=== PATIENT | female | born 1990 | race Caucasian/White ===

== ENCOUNTER 2018-04-18 12:05 | Emergency (ER) | payer OTHER, SELFPAY ==
[2018-04-18 12:21] VITALS: BP 117/86; PULSE 86; RESP 18; TEMP 37.1; O2SAT 95
--- NOTE | 2018-04-18 12:32 | ED.FEMALEGU ---
HPI - Female Genitourinary <HAYLIE Chavez - Last Filed: 04/18/18 15:36> General Chief complaint: Urogenital-Female Stated complaint: THINKS KIDNEY INFECTION Time Seen by Provider: 04/18/18 12:19 Source: patient Mode of arrival: ambulatory Limitations: no limitations History of Present Illness HPI Narrative: Patient is a 28-year-old female who presents with urinary urgency frequency and dysuria since Thursday. She states that she is developing flank pain. She denies any fevers but complains of chills. She denies any vomiting or diarrhea. She does state she has a history of endometriosis, took Plan B on Thursday after intercourse on Thursday. She denies any vaginal symptoms. She c/o suprapubic pain. Related Data Previous Rx's Medication Instructions Recorded naproxen 500 mg PO BID PRN #20 tab 04/18/18 nitrofurantoin monohyd/m-cryst 100 mg PO Q12H #14 cap 04/18/18 [Macrobid] phenazopyridine [AZO Standard 195 mg PO TID PRN #12 tab 04/18/18 Maximum Strength] Allergies Allergy/AdvReac Type Severity Reaction Status Date / Time No Known Drug Allergies Allergy Verified 04/18/18 12:28 Review of Systems <HAYLIE Chavez - Last Filed: 04/18/18 15:36> Review of Systems GENERAL: Denies chills, fatigue, malaise, fever, sweats. HEENT: Denies sinus pain, ear pain, sore throat, difficulty swallowing, dizziness. RESPIRATORY: Denies dyspnea, cough, wheezing, hemoptysis, sputum. CARDIOVASCULAR: Denies chest pain, palpitations, orthopnea, edema, GASTROINTESTINAL: See HPI : See HPI MUSCULOSKELETAL: denies weakness, joint pain, or bony pain SKIN: Denies rash, skin lesions, or other NEUROLOGIC: Denies weakness, headache, numbness, change in speech, confusion, seizures, incoordination. PSYCHIATRIC: No concerning psychosocial issues. 12 point review of systems is negative except for those stated above Exam <HAYLIE Chavez - Last Filed: 04/18/18 15:36> Narrative Exam Narrative: GENERAL: This is a well-nourished, well-developed patient, lying on side HEAD: Atraumatic. Normocephalic. No temporal or scalp tenderness. EYES: Pupils equal round and reactive. Extraocular motions intact. No scleral icterus. No injection or drainage. ENT: Nose without bleeding, purulent drainage or septal hematoma. Throat without erythema, tonsillar hypertrophy or exudate. Uvula midline. Airway patent. NECK: Trachea midline. No JVD or lymphadenopathy. Supple, nontender, no meningeal signs. CARDIOVASCULAR: Regular rate and rhythm without murmurs, gallops, or rubs. RESPIRATORY: Clear to auscultation. Breath sounds equal bilaterally. No wheezes, rales, or rhonchi. GASTROINTESTINAL: Abdomen soft, with diffuse tenderness to suprapubic palpation., nondistended. No hepato-splenomegaly, or palpable masses. No guarding. No pulsatile mass. Active bowel sounds all 4 quadrants. EXTREMITIES: No clubbing, cyanosis, or edema. No joint tenderness, effusion, or edema noted. BACK: Nontender without deformity or crepitance. No CVA tenderness bilaterally. NEURO: AOx3. SKIN: No rash or erythema. Initial Vital Signs Initial Vital Signs: Vital Signs Temperature 98.7 F 04/18/18 12:21 Pulse Rate 86 04/18/18 12:21 Respiratory Rate 18 04/18/18 12:21 Blood Pressure 117/86 04/18/18 12:21 Pulse Oximetry 95 04/18/18 12:21 <Keenan Méndez DO - Last Filed: 04/18/18 17:07> Initial Vital Signs Initial Vital Signs: Vital Signs Temperature 98.7 F 04/18/18 12:21 Pulse Rate 86 04/18/18 12:21 Respiratory Rate 18 04/18/18 12:21 Blood Pressure 117/86 04/18/18 12:21 Pulse Oximetry 95 04/18/18 12:21 Course <HARI Chavez-BC - Last Filed: 04/18/18 15:36> Orders Ordered: Discontinued Medications Ketorolac Tromethamine (Toradol) 60 mg IM NOW ONE Stop: 04/18/18 12:37 Last Admin: 04/18/18 12:43 Dose: 60 mg Ondansetron HCl (Zofran Odt) 4 mg PO NOW ONE Stop: 04/18/18 12:37 Last Admin: 04/18/18 12:44 Dose: 4 mg Reevaluation(s) Reevaluation #1: Checked on patient. States that she got the best 30 min of sleep and recent memory. Discussed her urine results. Discussed use of antibiotics as well as Pyridium and naproxen. Patient declined further workup for pelvic pain today. Discussed at length monitoring and being evaluated becomes worse or following up with primary care in the next few days. Discussed urine culture. Time: 13:40 Vital Signs - 8 hr 04/18/18 12:21 04/18/18 14:07 Temperature 98.7 F Pulse Rate 86 66 Respiratory Rate 18 14 Blood Pressure 117/86 Blood Pressure [Left Arm] 117/67 Pulse Oximetry 95 97 <Keenan Méndez DO - Last Filed: 04/18/18 17:07> Orders Ordered: Discontinued Medications Ketorolac Tromethamine (Toradol) 60 mg IM NOW ONE Stop: 04/18/18 12:37 Last Admin: 04/18/18 12:43 Dose: 60 mg Ondansetron HCl (Zofran Odt) 4 mg PO NOW ONE Stop: 04/18/18 12:37 Last Admin: 04/18/18 12:44 Dose: 4 mg Vital Signs - 8 hr 04/18/18 12:21 04/18/18 14:07 Temperature 98.7 F Pulse Rate 86 66 Respiratory Rate 18 14 Blood Pressure 117/86 Blood Pressure [Left Arm] 117/67 Pulse Oximetry 95 97 MDM - Female Genitourinary <HARI Chavez-BC - Last Filed: 04/18/18 15:36> Lab Data Attestation: I reviewed the patient's lab results. Lab Results 04/18/18 Range/Units Unknown Urine Color Yellow Urine Appearance Cloudy Urine pH 5.5 (4.5-8.0) Ur Specific [place] 1.015 (1.000-1.035) Urine Protein 2+ H (Negative) Urine Glucose (UA) Negative (Normal) g/dL Urine Ketones 1+ H (NEGATIVE) Urine Occult Blood 3+ H (Negative) Urine Nitrate Positive H (Negative) Urine Bilirubin Negative (NEGATIVE) Urine Urobilinogen 0.2 (0.2) E.U./dL Ur Leukocyte Esterase 2+ H (NEGATIVE) Urine RBC 5-10/hpf H (0-5/HPF) Urine WBC >100/hpf H (0-5/HPF) Ur Squamous Epith Cells None seen Urine Bacteria Moderate (10-30) H (None) Ur Culture Indicated? Specimen cultured Micro UA Comment Not Reportable Point of Care Testing Test Results Negative Urine Dip Bedside Urine Glucose Negative Bedside Urine Bilirubin - Negative Bedside Urine Ketone + 15 Urine Specific [place] 1.020 Bedside Urine Occult Blood +++ Bedside Urine pH 6.0 Bedside Urine Protein ++ 100 Bedside Urine Urobilinogen - Negative Bedside Urine Nitrite - Negative Bedside Urine Leukocytes +++ 500 Esterase MDM Narrative Medical decision making narrative: Patient presents with urinary urgency frequency and dysuria. Her UA is negative for but shows nitrates and bacteria. Will treat for UTI at this point time. I discussed at length up with primary care if worsening or no improvement including fever and inability keep down fluids. Patient had no questions or concerns upon discharge. <Keenan Méndez DO - Last Filed: 04/18/18 17:07> Lab Data Lab Results 04/18/18 Range/Units Unknown Urine Color Yellow Urine Appearance Cloudy Urine pH 5.5 (4.5-8.0) Ur Specific [place] 1.015 (1.000-1.035) Urine Protein 2+ H (Negative) Urine Glucose (UA) Negative (Normal) g/dL Urine Ketones 1+ H (NEGATIVE) Urine Occult Blood 3+ H (Negative) Urine Nitrate Positive H (Negative) Urine Bilirubin Negative (NEGATIVE) Urine Urobilinogen 0.2 (0.2) E.U./dL Ur Leukocyte Esterase 2+ H (NEGATIVE) Urine RBC 5-10/hpf H (0-5/HPF) Urine WBC >100/hpf H (0-5/HPF) Ur Squamous Epith Cells None seen Urine Bacteria Moderate (10-30) H (None) Ur Culture Indicated? Specimen cultured Micro UA Comment Not Reportable Point of Care Testing Test Results Negative Urine Dip Bedside Urine Glucose Negative Bedside Urine Bilirubin - Negative Bedside Urine Ketone + 15 Urine Specific [place] 1.020 Bedside Urine Occult Blood +++ Bedside Urine pH 6.0 Bedside Urine Protein ++ 100 Bedside Urine Urobilinogen - Negative Bedside Urine Nitrite - Negative Bedside Urine Leukocytes +++ 500 Esterase Discharge Plan Departure Patient Disposition: Home Clinical Impression: Urinary tract infection Discharge Date/Time: 04/18/18 14:11 Interventions: ED Discharge Assessment Last Done: 04/18/18 14:11 Instructions: DI for Urinary Tract Infection (UTI) Activity Restrictions/Additional Instructions: I am starting you on 3 medications. Please start the antibiotic today. I am giving you Pyridium that you can take 3 times a day as needed for urinary pain. Please take this with meals. You can start naproxen tonight for pain. Please do not combine this with any other NSAIDs. Please follow-up with her primary care provider if needed. Please be evaluated if you have any fever inability to keep down fluids or feel worse. The antibiotic should work in a few doses. We are sending out a urine culture to make sure that the antibiotic will work for you. Please be re-evaluated if you continue to have pelvic pain. Prescriptions: New nitrofurantoin monohyd/m-cryst [Macrobid] 100 mg capsule 100 mg PO Q12H Qty: 14 RF: 0 naproxen 500 mg tablet 500 mg PO BID PRN (Reason: pain) Qty: 20 RF: 0 phenazopyridine [AZO Standard Maximum Strength] 97.5 mg tablet 195 mg PO TID PRN (Reason: pain ) Qty: 12 RF: 0 Referrals: [facility] [Outside] Stand Alone Forms: Work/School Restrictions <Keenan Méndez DO - Last Filed: 04/18/18 17:07> [facility] Attending Kimberlyature Attestation: I was immediately available in the department for consultation. Documentation has been reviewed. I agree with assessment and plan.
[2018-04-18] MEDS: KETOROLAC 60 MG/2 ML VIAL IM (12:43)
[2018-04-18] MEDS: ONDANSETRON 4 MG ODT PO (12:44)
[2018-04-18 13:32] LABS: Appearance Urine UA CLOUDY; Bilirubin Urine UA NEGATIVE (NEGATIVE); Color Urine UA YELLOW; Glucose Urine UA NEGATIVE (Normal); Ketones Urine UA 1+ (NEGATIVE); Leukocyte Esterase Urine UA 2+ (NEGATIVE); Nitrite Urine UA POSITIVE (Negative); Occult Blood Urine UA 3+ (Negative); Protein Urine UA 2+ (Negative); Specific Gravity Urine UA 1.015 (1.000-1.035); Urobilinogen Urine UA 0.2 E.U./dL (0.2); pH Urine UA 5.5 (4.5-8.0)
[2018-04-18 13:33] LABS: RBC Urine 5-10/HPF (0-5/HPF)
[2018-04-18 13:34] LABS: Bacteria Urine Moderate (10-30); Culture Indicated Urine Specimen Cultured; Squamous Epithelial Cell Urine None Seen; WBC Urine >100/HPF (0-5/HPF)
[2018-04-18 14:07] VITALS: BP 117/67; PULSE 66; RESP 14; O2SAT 97
== END 2018-04-18 14:11 | disposition home or self-care (01) ==
PROVIDERS: Emergency Provider Nurse Practitioner Family
DX: N39.0 Urinary tract infection, site not specified (principal)
CPT/HCPCS: 81001; 81003; 81025; 87077; 87086; 87186; 96372; 99282; 99283; J1885

== ENCOUNTER 2021-11-12 14:28 | Emergency (ER) | payer OTHER, SELFPAY ==
[2021-11-12 14:54] VITALS: BP 138/95; PULSE 71; RESP 17; TEMP 36.7; O2SAT 100; BMI 26.6
[2021-11-12 15:37] LABS: Appearance Urine UA CLEAR; Bilirubin Urine UA NEGATIVE (NEGATIVE); Color Urine UA YELLOW; Glucose Urine UA NEGATIVE (Negative); Ketones Urine UA NEGATIVE (NEGATIVE); Leukocyte Esterase Urine UA TRACE (NEGATIVE); Nitrite Urine UA NEGATIVE (Negative); Occult Blood Urine UA 1+ (Negative); Protein Urine UA NEGATIVE (Negative); Specific Gravity Urine UA 1.015 (1.000-1.035); Urobilinogen Urine UA 0.2 E.U./dL (0.2)
[2021-11-12 15:46] LABS: Bacteria Urine None Seen; RBC Urine 0-1/HPF (0-5/HPF); Squamous Epithelial Cell Urine 0-1 /HPF (0-5/HPF); WBC Urine 0-1/HPF (0-5/HPF)
[2021-11-12 15:48] LABS: Culture Indicated Urine Specimen Cultured
[2021-11-12 16:22] LABS: Add Manual Diff / Slide Review NO; Basophils Absolute Auto 0 /uL (0-100); Basophils Percent Auto 0.7 % (0-2); Eosinophils Absolute Auto 200 /uL (0-450); Eosinophils Percent Auto 2.8 % (2-4); Hematocrit 36.7 % (36-46); Hemoglobin 12.3 g/dL (12.0-16.0); Lymphocytes Absolute Auto 3100 /uL (1100-4500); Lymphocytes Percent Auto 43.6 % (25-40); Mean Corpuscular HGB Conc 33.4 % (30-36); Mean Corpuscular Hemoglobin 29.2 PG (26-34); Mean Corpuscular Volume 87.3 fL (80-100); Monocytes Absolute Auto 500 /uL (0-900); Monocytes Percent Auto 6.8 % (3-14); Neutrophils Absolute Auto 3300 /uL (1500-7000); Neutrophils Percent Auto 46.1 % (50-75); Platelet Count 284 X10^3/uL (150-400); Red Cell Distribution Width 13.3 % (11.6-14.8); White Blood Cell Count 7.1 X10^3/uL (4.5-11.0)
[2021-11-12 16:56] LABS: Alanine Aminotransferase 21 IU/L (<35); Albumin 4.4 g/dL (3.5-5.0); Albumin Globulin Ratio 1.5 (1.0-2.8); Alkaline Phosphatase 59 U/L (38-126); Aspartate Aminotransferase 36 IU/L (14-36); BUN Creatinine Ratio 16.7 (6-22); Bilirubin Total 0.3 mg/dL (0.2-1.3); Blood Urea Nitrogen 9 mg/dL (7-17); Calcium 8.9 mg/dL (8.4-10.2); Carbon Dioxide 23 mmol/L (22-32); Chloride 106 mmol/L (98-107); Estimated Glomerular Filt Rate > 60 mL/min (>60); Globulin 2.9 g/dL (1.7-4.1); Glucose 81 mg/dL (70-100); HEMOLYSIS 36 (0-50); Potassium 3.8 mmol/L (3.4-5.1); Sodium 137 mmol/L (137-145); Total Protein 7.3 g/dL (6.3-8.2)
[2021-11-12 17:12] LABS: HCG Quantitative /Beta subunit 274.1 mIU/mL
--- NOTE | 2021-11-12 18:51 | DI.US.S_ITS ---
PROCEDURE: US PELVIC COMPLETE INDICATIONS: POSITIVE ; SPOTTING, PAIN TECHNIQUE: Real-time scanning was performed of the pelvic organs, with image documentation. Additional endovaginal scanning was necessary due to incomplete visualization of the adnexal and endometrial structures by transabdominal scanning. COMPARISON: None. FINDINGS: Uterus: Uterus is anteverted and measures 9.4 x 5.2 x 6.9 cm. The myometrium is homogeneous. The endometrium measures 1.5 cm in combined thickness without internal vascularity on color Doppler interrogation. No discrete additional sac identified to suggest an intrauterine . Ovaries: The right ovary measures 2.6 x 1.9 x 2.0 cm. The left ovary measures 2.9 x 2.0 x 2.1 cm. There is an hypoechoic structure within the left ovary measuring approximately 2.0 x 1.3 x 1.5 cm. There is peripheral vascularity on color Doppler interrogation. Other: No pathologic free abdominal or pelvic fluid. IMPRESSION: 1. No intrauterine identified. 2. Oval hypoechoic structure within the left ovary with peripheral vascularity likely represents a corpus luteal cyst. The differential includes an ectopic but this is considered less likely given the relatively low beta HCG level and morphologic appearance. Recommend follow-up serial beta hCGs and if indicated a follow-up repeat ultrasound may be performed for further evaluation. Findings discussed with Dr. Castro on 11/12/2021 at 8:55 p.m.. We strive to produce accurate, complete, and clear reports of imaging services. To assist us in improving patient care, this report was composed using standard report templates and voice recognition software. Therefore, it may contain abnormal punctuation, insertions and/or omissions. Occasional wrong-word or sound-alike substitutions may occur. Though we review the report and make efforts to correct it, we do recommend that the report be read carefully in proper context to recognize any text inaccuracies. Dictated by: Thee Hernandez M.D. on 11/12/2021 at 20:52 Approved by: Thee Hernandez M.D. on 11/12/2021 at 21:01
--- NOTE | 2021-11-12 19:25 | ED.PREGNANCY ---
HPI - <MARINA Zapata - Last Filed: 11/12/21 21:33> General Chief complaint: Vaginal Bleeding Stated complaint: [place] and is spotting Time Seen by Provider: 11/12/21 19:10 Source: patient Mode of arrival: Ambulatory History of Present Illness HPI Narrative: This is a pleasant 31-year-old female who presents to the emergency department with vaginal spotting, a very small amount which started 3 days ago as brown vaginal discharge. Patient's last menstrual period was 09/07/2021, she has also had left-sided cramping, states that she has felt fatigued, denies fever, nausea, vomiting, diarrhea. Patient states that her spotting started after she was at the gym, thought that she worked out too hard, and rested, but it continued the next 2 days and cramping has started. Patient states that she has not had her 1st OB appointment yet, states that she takes citalopram 20 mg daily, denies any other medications other than vitamins. She endorses some back pain which was worse about 3 days ago, now has improved, she endorses urinary frequency but denies any dysuria. Patient's past states that she was up to void approximately every 2 hours the last 2 nights. Related Data Previous Rx's Medication Instructions Recorded naproxen 500 mg tablet 500 mg PO BID PRN #20 tab 04/18/18 nitrofurantoin 100 mg PO Q12H #14 cap 04/18/18 monohydrate/macrocrystals 100 mg capsule (Macrobid) phenazopyridine 97.5 mg tablet 195 mg PO TID PRN #12 tab 04/18/18 (AZO Standard Maximum Strength) Allergies Allergy/AdvReac Type Severity Reaction Status Date / Time No Known Drug Allergies Allergy Verified 04/18/18 12:28 Review of Systems <MARINA Zapata - Last Filed: 11/12/21 21:33> Review of Systems Narrative: General: denies fever, chills, malaise, sweats, fatigue Head/Neck: denies headache, neck pain, dizziness Eyes: denies visual changes, eye pain Cardio: denies chest pain, palpitations, edema Respiratory: denies dyspnea, cough GI: denies abdominal pain, nausea, vomiting, or diarrhea : denies dysuria, hematuria, urinary retention, frequency or incontinence [employer]: Vaginal spotting which is pink and light in volume MSK: denies joint pain, muscle weakness Skin: denies rash, itching, skin lesions or other Neuro: denies numbness, tingling Exam <MARINA Zapata - Last Filed: 11/12/21 21:33> Narrative Exam Narrative: Independently reviewed vitals signs and nursing notes. General: cooperative, comfortable, in no acute distress, well developed and well groomed Head: atraumatic, symmetrical facial expressions Neck: supple, atraumatic, without lymphadenopathy. Eyes: pupils equal round and reactive, EOMI, conjunctiva normal Nose: nares patent, no rhinorrhea Mouth/Throat: uvula midline, moist mucus membranes Cardiovascular: regular rate and rhythm, no peripheral edema, warm extremities Respiratory: normal effort, able to speak in complete sentences, no audible wheezing, stridor, or rales. No retractions or tachypnea. GI: abdomen soft, nontender to palpation, nondistended, no masses, no exquisite tenderness with exam, without guarding or rebound. No CVA tenderness MSK: moves all extremities, ambulatory w/steady gait, neurovascularly intact, no weakness Skin: brisk capillary refill, no rash, no erythema Neuro: normal speech and cognition, A&O x3, normal tone Psych: mental status is grossly normal, congruent mood, normal affect, pleasant tearful, anxious about diagnosis, and cooperative Initial Vital Signs Initial Vital Signs: Vital Signs Temperature 98.1 F 11/12/21 14:54 Pulse Rate 71 11/12/21 14:54 Respiratory Rate 17 11/12/21 14:54 Blood Pressure 138/95 H 11/12/21 14:54 Pulse Oximetry 100 11/12/21 14:54 <Carmen Reeder DO - Last Filed: 11/13/21 07:24> Initial Vital Signs Initial Vital Signs: Vital Signs Temperature 98.1 F 11/12/21 14:54 Pulse Rate 71 11/12/21 14:54 Respiratory Rate 17 11/12/21 14:54 Blood Pressure 138/95 H 11/12/21 14:54 Pulse Oximetry 100 11/12/21 14:54 Course <MARINA Zapata - Last Filed: 11/12/21 21:33> Orders Ordered: ED Orders 11/12/21 15:00 Urinalysis and Microscopic Stat Urine Culture Stat 11/12/21 16:15 ABO RH Type Stat Complete Blood Count AUTO DIFF Stat Comprehensive Metabolic Panel Stat HCG Quantitative /Beta subunit Stat 11/12/21 18:51 US pelvic complete Stat 11/12/21 20:02 Consult to Obstetrics Stat Vital Signs Vital signs: Vital Signs - 8 hr 11/12/21 14:54 11/12/21 20:00 Temperature 98.1 F Pulse Rate 71 69 Respiratory Rate 17 18 Blood Pressure 138/95 H 117/75 Pulse Oximetry 100 98 <Carmen Reeder DO - Last Filed: 11/13/21 07:24> Orders Ordered: ED Orders 11/12/21 15:00 Urinalysis and Microscopic Stat Urine Culture Stat 11/12/21 16:15 ABO RH Type Stat Complete Blood Count AUTO DIFF Stat Comprehensive Metabolic Panel Stat HCG Quantitative /Beta subunit Stat 11/12/21 18:51 US pelvic complete Stat 11/12/21 20:02 Consult to Obstetrics Stat Vital Signs Vital signs: Vital Signs - 8 hr 11/12/21 14:54 11/12/21 20:00 Temperature 98.1 F Pulse Rate 71 69 Respiratory Rate 17 18 Blood Pressure 138/95 H 117/75 Pulse Oximetry 100 98 MDM - OB/Uterine Contractions <MARINA Zapata - Last Filed: 11/12/21 21:33> Lab Data Result diagrams: 11/12/21 16:15 11/12/21 16:15 Labs: Lab Results 11/12/21 11/12/21 11/12/21 Range/Units 15:00 16:15 16:15 WBC 7.1 (4.5-11.0) X10^3/uL RBC 4.20 (4.0-5.2) X10^6/uL Hgb 12.3 (12.0-16.0) g/dL Hct 36.7 (36-46) % MCV 87.3 (80-100) fL MCH 29.2 (26-34) PG MCHC 33.4 (30-36) % RDW 13.3 (11.6-14.8) % Plt Count 284 (150-400) X10^3/uL Neut % (Auto) 46.1 L (50-75) % Lymph % (Auto) 43.6 H (25-40) % [place] % (Auto) 6.8 (3-14) % Eos % (Auto) 2.8 (2-4) % Baso % (Auto) 0.7 (0-2) % Neut # (Auto) 3300 (7627-3035) /uL Lymph # (Auto) 3100 (7581-7097) /uL [place] # (Auto) 500 (0-900) /uL Eos # (Auto) 200 (0-450) /uL Baso # (Auto) 0 (0-100) /uL Sodium 137 (137-145) mmol/L Potassium 3.8 (3.4-5.1) mmol/L Chloride 106 (98-107) mmol/L Carbon Dioxide 23 (22-32) mmol/L BUN 9 (7-17) mg/dL Creatinine 0.54 (0.52-1.04) mg/dL Estimated GFR > 60 (>60) mL/min BUN/Creatinine Ratio 16.7 (6-22) Glucose 81 (70-100) mg/dL Calcium 8.9 (8.4-10.2) mg/dL Total Bilirubin 0.3 (0.2-1.3) mg/dL AST 36 (14-36) IU/L ALT 21 (<35) IU/L Alkaline Phosphatase 59 (38-126) U/L Total Protein 7.3 (6.3-8.2) g/dL Albumin 4.4 (3.5-5.0) g/dL Globulin 2.9 (1.7-4.1) g/dL Albumin/Globulin Ratio 1.5 (1.0-2.8) HCG, Quant 274.1 mIU/mL Urine Color Yellow Urine Appearance Clear Urine pH 7.0 (4.5-8.0) Ur Specific [place] 1.015 (1.000-1.035) Urine Protein Negative (Negative) Urine Glucose (UA) Negative (Negative) g/dL Urine Ketones Negative (NEGATIVE) Urine Occult Blood 1+ H (Negative) Urine Nitrate Negative (Negative) Urine Bilirubin Negative (NEGATIVE) Urine Urobilinogen 0.2 (0.2) E.U./dL Ur Leukocyte Esterase Trace H (NEGATIVE) Urine RBC 0-1/hpf (0-5/HPF) Urine WBC 0-1/hpf (0-5/HPF) Ur Squamous Epith Cells 0-1 /hpf (0-5/HPF) Urine Bacteria None seen (None) Ur Culture Indicated? Specimen cultured Blood Type 11/12/21 Range/Units 16:15 WBC (4.5-11.0) X10^3/uL RBC (4.0-5.2) X10^6/uL Hgb (12.0-16.0) g/dL Hct (36-46) % MCV (80-100) fL MCH (26-34) PG MCHC (30-36) % RDW (11.6-14.8) % Plt Count (150-400) X10^3/uL Neut % (Auto) (50-75) % Lymph % (Auto) (25-40) % [place] % (Auto) (3-14) % Eos % (Auto) (2-4) % Baso % (Auto) (0-2) % Neut # (Auto) (0084-9390) /uL Lymph # (Auto) (1924-6363) /uL [place] # (Auto) (0-900) /uL Eos # (Auto) (0-450) /uL Baso # (Auto) (0-100) /uL Sodium (137-145) mmol/L Potassium (3.4-5.1) mmol/L Chloride (98-107) mmol/L Carbon Dioxide (22-32) mmol/L BUN (7-17) mg/dL Creatinine (0.52-1.04) mg/dL Estimated GFR (>60) mL/min BUN/Creatinine Ratio (6-22) Glucose (70-100) mg/dL Calcium (8.4-10.2) mg/dL Total Bilirubin (0.2-1.3) mg/dL AST (14-36) IU/L ALT (<35) IU/L Alkaline Phosphatase (38-126) U/L Total Protein (6.3-8.2) g/dL Albumin (3.5-5.0) g/dL Globulin (1.7-4.1) g/dL Albumin/Globulin Ratio (1.0-2.8) HCG, Quant mIU/mL Urine Color Urine Appearance Urine pH (4.5-8.0) Ur Specific [place] (1.000-1.035) Urine Protein (Negative) Urine Glucose (UA) (Negative) g/dL Urine Ketones (NEGATIVE) Urine Occult Blood (Negative) Urine Nitrate (Negative) Urine Bilirubin (NEGATIVE) Urine Urobilinogen (0.2) E.U./dL Ur Leukocyte Esterase (NEGATIVE) Urine RBC (0-5/HPF) Urine WBC (0-5/HPF) Ur Squamous Epith Cells (0-5/HPF) Urine Bacteria (None) Ur Culture Indicated? Blood Type A Positive Imaging Data US - OB: Radiologist's Impression: PROCEDURE:? US PELVIC COMPLETE ? INDICATIONS:? POSITIVE ; SPOTTING, PAIN ? TECHNIQUE:? Real-time scanning was performed of the pelvic organs, with image documentation.? Additional endovaginal scanning was necessary due to incomplete visualization of the adnexal and endometrial structures by transabdominal scanning.? ? COMPARISON:? None. ? FINDINGS:? ?? Uterus:? Uterus is anteverted and measures 9.4 x 5.2 x 6.9 cm.? The myometrium is homogeneous. ? The endometrium measures 1.5 cm in combined thickness without internal vascularity on color Doppler interrogation.? No discrete additional sac identified to suggest an intrauterine .? ? Ovaries:? The right ovary measures 2.6 x 1.9 x 2.0 cm. The left ovary measures 2.9 x 2.0 x 2.1 cm.? There is an hypoechoic structure within the left ovary measuring approximately 2.0 x 1.3 x 1.5 cm.? There is peripheral vascularity on color Doppler interrogation. ? Other:? No pathologic free abdominal or pelvic fluid. ? ? IMPRESSION:? ? 1. No intrauterine identified. ? 2. Oval hypoechoic structure within the left ovary with peripheral vascularity likely represents a corpus luteal cyst.? The differential includes an ectopic but this is considered less likely given the relatively low beta HCG level and morphologic appearance.? Recommend follow-up serial beta hCGs and if indicated a follow-up repeat ultrasound may be performed for further evaluation. ? Findings discussed with Dr. Castro on 11/12/2021 at 8:55 p.m.. ? ? ? We strive to produce accurate, complete, and clear reports of imaging services. To assist us in improving patient care, this report was composed using standard report templates and voice recognition software. Therefore, it may contain abnormal punctuation, insertions and/or omissions. Occasional wrong-word or sound-alike substitutions may occur. Though we review the report and make efforts to correct it, we do recommend that the report be read carefully in proper context to recognize any text inaccuracies. ? ? Dictated by: Thee Hernandez M.D. on 11/12/2021 at 20:52 ? ? Approved by: Thee Hernandez M.D. on 11/12/2021 at 21:01 ? MDM Narrative Medical decision making narrative: This is a 31-year-old female who is a who presents to the emergency department with last menstrual period of 09/07/2021, history of irregular periods, with a wanted with a positive test on 11/05/2021. Patient states that she had brown vaginal spotting which started 3 nights ago after heavy workout. This has progressed to pink today, she has left-sided cramping, feels fatigued but denies any nausea, vomiting, pain out of proportion, weakness, lightheadedness, or heavy vaginal bleeding. Patient's hCG level is 247, patient states she had intercourse on 10/13/2021 without contraception, and she could have conceived this day also. Pelvic ultrasound shows no intrauterine identified. There is an over hypoechoic structure within the left ovary with peripheral vascularity which they call likely representing a corpus luteal cyst. This could also be an ectopic but less likely due to the low hCG level but due to her unsure date of conception, this could be from 10/13/2021. Consultation with Dr. Pinzon for OBGYN, he recommends following up with his group as an outpatient, he will arrange the clinic to call her for an appointment. She is recommended to rest, take a week off of work, meet with her therapist, and continue taking vitamins, and Tylenol as needed for your pain. Patient states that this is a wanted by her but her does not want to have another child, and he has been using contraception with most of their intercourse to avoid . Patient is tearful due to this situation, and she states that she really wishes to have another child. Patient was comforted, encouraged to follow-up with OBGYN and discuss these things with her therapist. Patient is appropriate and amenable to discharge home. Vital signs are stable on repeat examination is unremarkable. Patient has been informed of results. Patient has been given strict return to ER precautions for any new or worsening symptoms. Patient understands to follow up closely with outpatient providers as instructed. Patient understands plan and agrees to discharge home. All questions and concerns answered at this time. <Carmen Reeder DO - Last Filed: 11/13/21 07:24> Lab Data Labs: Lab Results 11/12/21 11/12/21 11/12/21 Range/Units 15:00 16:15 16:15 WBC 7.1 (4.5-11.0) X10^3/uL RBC 4.20 (4.0-5.2) X10^6/uL Hgb 12.3 (12.0-16.0) g/dL Hct 36.7 (36-46) % MCV 87.3 (80-100) fL MCH 29.2 (26-34) PG MCHC 33.4 (30-36) % RDW 13.3 (11.6-14.8) % Plt Count 284 (150-400) X10^3/uL Neut % (Auto) 46.1 L (50-75) % Lymph % (Auto) 43.6 H (25-40) % [place] % (Auto) 6.8 (3-14) % Eos % (Auto) 2.8 (2-4) % Baso % (Auto) 0.7 (0-2) % Neut # (Auto) 3300 (8849-6388) /uL Lymph # (Auto) 3100 (3271-8531) /uL [place] # (Auto) 500 (0-900) /uL Eos # (Auto) 200 (0-450) /uL Baso # (Auto) 0 (0-100) /uL Sodium 137 (137-145) mmol/L Potassium 3.8 (3.4-5.1) mmol/L Chloride 106 (98-107) mmol/L Carbon Dioxide 23 (22-32) mmol/L BUN 9 (7-17) mg/dL Creatinine 0.54 (0.52-1.04) mg/dL Estimated GFR > 60 (>60) mL/min BUN/Creatinine Ratio 16.7 (6-22) Glucose 81 (70-100) mg/dL Calcium 8.9 (8.4-10.2) mg/dL Total Bilirubin 0.3 (0.2-1.3) mg/dL AST 36 (14-36) IU/L ALT 21 (<35) IU/L Alkaline Phosphatase 59 (38-126) U/L Total Protein 7.3 (6.3-8.2) g/dL Albumin 4.4 (3.5-5.0) g/dL Globulin 2.9 (1.7-4.1) g/dL Albumin/Globulin Ratio 1.5 (1.0-2.8) HCG, Quant 274.1 mIU/mL Urine Color Yellow Urine Appearance Clear Urine pH 7.0 (4.5-8.0) Ur Specific [place] 1.015 (1.000-1.035) Urine Protein Negative (Negative) Urine Glucose (UA) Negative (Negative) g/dL Urine Ketones Negative (NEGATIVE) Urine Occult Blood 1+ H (Negative) Urine Nitrate Negative (Negative) Urine Bilirubin Negative (NEGATIVE) Urine Urobilinogen 0.2 (0.2) E.U./dL Ur Leukocyte Esterase Trace H (NEGATIVE) Urine RBC 0-1/hpf (0-5/HPF) Urine WBC 0-1/hpf (0-5/HPF) Ur Squamous Epith Cells 0-1 /hpf (0-5/HPF) Urine Bacteria None seen (None) Ur Culture Indicated? Specimen cultured Blood Type 11/12/21 Range/Units 16:15 WBC (4.5-11.0) X10^3/uL RBC (4.0-5.2) X10^6/uL Hgb (12.0-16.0) g/dL Hct (36-46) % MCV (80-100) fL MCH (26-34) PG MCHC (30-36) % RDW (11.6-14.8) % Plt Count (150-400) X10^3/uL Neut % (Auto) (50-75) % Lymph % (Auto) (25-40) % [place] % (Auto) (3-14) % Eos % (Auto) (2-4) % Baso % (Auto) (0-2) % Neut # (Auto) (7331-8025) /uL Lymph # (Auto) (8666-7263) /uL [place] # (Auto) (0-900) /uL Eos # (Auto) (0-450) /uL Baso # (Auto) (0-100) /uL Sodium (137-145) mmol/L Potassium (3.4-5.1) mmol/L Chloride (98-107) mmol/L Carbon Dioxide (22-32) mmol/L BUN (7-17) mg/dL Creatinine (0.52-1.04) mg/dL Estimated GFR (>60) mL/min BUN/Creatinine Ratio (6-22) Glucose (70-100) mg/dL Calcium (8.4-10.2) mg/dL Total Bilirubin (0.2-1.3) mg/dL AST (14-36) IU/L ALT (<35) IU/L Alkaline Phosphatase (38-126) U/L Total Protein (6.3-8.2) g/dL Albumin (3.5-5.0) g/dL Globulin (1.7-4.1) g/dL Albumin/Globulin Ratio (1.0-2.8) HCG, Quant mIU/mL Urine Color Urine Appearance Urine pH (4.5-8.0) Ur Specific [place] (1.000-1.035) Urine Protein (Negative) Urine Glucose (UA) (Negative) g/dL Urine Ketones (NEGATIVE) Urine Occult Blood (Negative) Urine Nitrate (Negative) Urine Bilirubin (NEGATIVE) Urine Urobilinogen (0.2) E.U./dL Ur Leukocyte Esterase (NEGATIVE) Urine RBC (0-5/HPF) Urine WBC (0-5/HPF) Ur Squamous Epith Cells (0-5/HPF) Urine Bacteria (None) Ur Culture Indicated? Blood Type A Positive Discharge Plan Departure Patient Disposition: Home Clinical Impression: Vaginal bleeding Instructions: DI for Vaginal Bleeding During , DI for Vaginal Bleeding Activity Restrictions/Additional Instructions: *You have been diagnosed with vaginal bleeding/spotting, last menstrual period of 09/07/2021, and an hCG level of 274.1 today. Your ultrasound does not show any intrauterine today. There is a oval structure within the left ovary that appears most like a corpus luteal cyst. This could also be an ectopic . Please follow-up with Dr. Pinzon's group tomorrow when they call you to schedule a follow-up appointment. They would like to see you within the next few days. Please take the rest of the week off work to rest, take Tylenol as needed for your pain and discomfort, stay hydrated with plenty of water, come to the emergency department for any sharp worsening of your pain, nausea and vomiting, heavy vaginal bleeding, or any other concerns. Thank you for trusting us with your care, I wish you the best. *What to do: *Please continue to take your regular medications as directed. [ ] New medication prescriptions sent to your pharmacy: [ ] [ ] New medication written as a paper prescription [x ] No new medications given *Please follow up with your primary care provider in 2-3 days, call for an appointment. Let them know you were seen in the Emergency Department and that we asked that you be seen for follow-up. We will electronically transmit a record of today's note if your PCP is in our system *If you do not have a primary care provider please contact [phone] to establish care with one of the [facility] primary care providers. *Return to Emergency Department if you should have any new, worsening or concerning symptoms, such as [fever greater than 101F, chills, worsening pain, persistent vomiting or other bothersome symptoms] Prescriptions: No Action nitrofurantoin monohyd/m-cryst [Macrobid] 100 mg capsule 100 mg PO Q12H Qty: 14 0RF Rx Instructions: must administer with a meal/food naproxen 500 mg tablet 500 mg PO BID PRN (Reason: pain) Qty: 20 0RF phenazopyridine [AZO Standard Maximum Strength] 97.5 mg tablet 195 mg PO TID PRN (Reason: pain ) Qty: 12 0RF Referrals: Denis Paez DO [Primary Care Provider] - Jorge Pinzon MD [Physician] - Stand Alone Forms: Work Release Note <Carmen Reeder DO - Last Filed: 11/13/21 07:24> [facility] Kimberlyature Attestation: I was immediately available in the department for consultation. Documentation has been reviewed. I agree with assessment and plan.
[2021-11-12 20:00] VITALS: BP 117/75; PULSE 69; RESP 18; O2SAT 98
[2021-11-12 20:30] VITALS: BP 115/67; PULSE 73; RESP 18; O2SAT 96
[2021-11-12 21:00] VITALS: BP 120/80; PULSE 83; RESP 18; O2SAT 98
== END 2021-11-12 21:29 | disposition home or self-care (01) ==
PROVIDERS: Emergency Medicine; Emergency Provider Nurse Practitioner Critical Care Medicine; PCP Student in an Organized Health Care Education/Training Program
DX: O20.9 Hemorrhage in early pregnancy, unspecified (principal)
CPT/HCPCS: 36415; 76830; 76856; 80053; 81001; 84702; 85025; 86900; 86901; 87077; 87086; 87186; 99283

== ENCOUNTER → 2021-11-14 12:05 | Outpatient (CLI) | payer OTHER, SELFPAY ==
[2021-11-14 13:42] LABS: HCG Quantitative /Beta subunit 169.6 mIU/mL
== END ==
PROVIDERS: PCP Student in an Organized Health Care Education/Training Program; Referring Provider Obstetrics & Gynecology; Visit Provider Obstetrics & Gynecology
DX: O20.9 Hemorrhage in early pregnancy, unspecified (principal)
CPT/HCPCS: 36415; 84702

== ENCOUNTER → 2024-09-29 15:26 | Outpatient (CLI) | payer OTHER, SELFPAY ==
[2024-09-29 16:05] LABS: Add Manual Diff / Slide Review NO; Basophils Absolute Auto 0 /uL (0-100); Basophils Percent Auto 0.3 % (0-2); Eosinophils Absolute Auto 100 /uL (0-450); Eosinophils Percent Auto 1.3 % (2-4); Hematocrit 35.3 % (36-46); Hemoglobin 11.8 g/dL (12.0-16.0); Lymphocytes Absolute Auto 1900 /uL (1100-4500); Lymphocytes Percent Auto 26.8 % (25-40); Mean Corpuscular HGB Conc 33.3 % (30-36); Monocytes Absolute Auto 500 /uL (0-900); Monocytes Percent Auto 7.6 % (3-14); Neutrophils Absolute Auto 4500 /uL (1500-7000); Platelet Count 288 X10^3/uL (150-400); Red Blood Cell Count 4.21 X10^6/uL (4.0-5.2); Red Cell Distribution Width 14.5 % (11.6-14.8); White Blood Cell Count 7.1 X10^3/uL (4.5-11.0)
[2024-09-29 16:35] LABS: Natera Collection Specimen Collected
[2024-09-29 17:01] LABS: Hepatitis B Surface Antigen NEGATIVE s/c (NEGATIVE); Rubella Antibody IgG 7.1 IU/mL (>15)
[2024-09-29 17:14] LABS: HIV 1 & 2 Ab/Ag 4th Gen Combo NEGATIVE (NEGATIVE); Hep C Virus Ab w/Reflex Quant NEGATIVE s/c (NEGATIVE)
[2024-10-01 03:08] LABS: RPR Screen Non Reactive (Non Reactive)
[2024-10-01 09:08] LABS: Varicella IgG Antibody Reactive (Non Reactive)
== END ==
PROVIDERS: Referring Provider Student in an Organized Health Care Education/Training Program; Visit Provider Student in an Organized Health Care Education/Training Program
DX: Z34.80 Encounter for supervision of other normal pregnancy, unspecified trimester (principal); Z36.0 Encounter for antenatal screening for chromosomal anomalies
CPT/HCPCS: 36415; 80055; 86787; 86803; 86850; 86900; 86901; 87389

== ENCOUNTER → 2024-11-29 15:19 | Outpatient (CLI) | payer OTHER, SELFPAY ==
[2024-11-29 16:26] LABS: Add Manual Diff / Slide Review NO; Basophils Absolute Auto 0 /uL (0-100); Basophils Percent Auto 0.2 % (0-2); Eosinophils Absolute Auto 200 /uL (0-450); Eosinophils Percent Auto 1.8 % (2-4); Hematocrit 32.9 % (36-46); Hemoglobin 11.3 g/dL (12.0-16.0); Lymphocytes Absolute Auto 2000 /uL (1100-4500); Lymphocytes Percent Auto 21.9 % (25-40); Mean Corpuscular HGB Conc 34.3 % (30-36); Mean Corpuscular Hemoglobin 29.3 PG (26-34); Mean Corpuscular Volume 85.3 fL (80-100); Monocytes Absolute Auto 700 /uL (0-900); Monocytes Percent Auto 7.4 % (3-14); Neutrophils Absolute Auto 6300 /uL (1500-7000); Neutrophils Percent Auto 68.7 % (50-75); Platelet Count 282 X10^3/uL (150-400); Red Blood Cell Count 3.85 X10^6/uL (4.0-5.2); Red Cell Distribution Width 14.1 % (11.6-14.8); White Blood Cell Count 9.1 X10^3/uL (4.5-11.0)
[2024-11-29 16:58] LABS: BUN Creatinine Ratio 15.6 (6-22); Blood Urea Nitrogen 7 mg/dL (7-17); Calcium 9.5 mg/dL (8.4-10.2); Carbon Dioxide 20 mmol/L (22-32); Chloride 105 mmol/L (98-107); Estimated Glomerular Filt Rate > 60 mL/min (>60); Glucose 77 mg/dL (70-99); HEMOLYSIS < 15 (0-50); Potassium 4.2 mmol/L (3.4-5.1); Sodium 133 mmol/L (137-145)
== END ==
PROVIDERS: Referring Provider Student in an Organized Health Care Education/Training Program; Visit Provider Student in an Organized Health Care Education/Training Program
DX: R42 Dizziness and giddiness (principal)
CPT/HCPCS: 36415; 80048; 85025

== ENCOUNTER → 2024-12-06 12:45 | Outpatient (CLI) | payer OTHER, SELFPAY ==
--- NOTE | 2024-12-06 12:47 | DI.US.S_ITS ---
PROCEDURE: US OB >= 14 WEEKS FETUS INDICATIONS: 20 week anatomy scan OUTSIDE/PRIOR DATING DATA: Last menstrual period (LMP): 07/08/2024. LMP-based estimated date of delivery (BECKY): 04/14/2025. The calculations are made using the clinical BECKY of 04/14/2025. TECHNIQUE: Real-time scanning was performed of the fetus, with image documentation and biometric measurements. Endovaginal scanning: Not performed COMPARISON: None. FINDINGS: General: A single living intrauterine gestation is present. Presentation: Breech. Placenta: Placental position is posterior fundal, without previa. Amniotic fluid index: 18.1 cm, normal range is 5-24 cm. Single deepest vertical pocket is 6.9 cm. heart rate: 143 beats per minute. Maternal cervical canal: 3.7 cm long. Normal lower limit is 2.5 cm. biometrics: Biparietal diameter: 5.1 cm, 21 weeks 4 days Head circumference: 18.3 cm, 20 weeks 4 days Abdominal circumference: 17.2 cm, 22 weeks 1 day Femur length: 3.7 cm, 21 weeks 6 days Clinically estimated gestational age: 21 weeks 4 days Composite gestational age from present scan: 21 weeks 4 days Estimated weight and percentile: 457 g, 60th percentile Anatomic survey: Neuro: Ventricles are non-dilated at less than 10 mm. Cisterna magna is normal at 3-11 mm. Cerebellum is normal in size and morphology. Nuchal skin fold: Normal at less than 6 mm between 14-21 weeks gestational age. Face: Nose and lips, facial profile are normal. Spine: No evidence for spina bifida. Heart: 4-chambered heart is present, with normal ventricular outflow tracts. Diaphragm: Diaphragm is intact. Stomach: Left-sided stomach is present. Kidneys: No hydronephrosis. Normal is less than 5 mm in 2nd trimester, less than 7 mm in 3rd trimester. Cord: 3-vessel cord has orthotopic insertion. Bladder: Normal in size. Extremities: All 4 extremities identified. IMPRESSION: 1. [place] living intrauterine at 21 weeks 4 days based on today's ultrasound. Fetus is in the 60th percentile for weight overall. The head circumference is in the 9th percentile for weight. 2. Normal placenta and amniotic fluid. 3. Normal and complete anatomic survey. We strive to produce accurate, complete, and clear reports of imaging services. To assist us in improving patient care, this report was composed using standard report templates and voice recognition software. Therefore, it may contain abnormal punctuation, insertions and/or omissions. Occasional wrong-word or sound-alike substitutions may occur. Though we review the report and make efforts to correct it, we do recommend that the report be read carefully in proper context to recognize any text inaccuracies. Dictated by: Fili Medina M.D. on 12/07/2024 at 16:49 Approved by: Fili Medina M.D. on 12/07/2024 at 16:55
== END ==
PROVIDERS: Referring Provider Student in an Organized Health Care Education/Training Program; Visit Provider Student in an Organized Health Care Education/Training Program
DX: Z34.82 Encounter for supervision of other normal pregnancy, second trimester (principal); Z3A.21 21 weeks gestation of pregnancy
CPT/HCPCS: 76811

== ENCOUNTER → 2025-01-19 10:45 | Outpatient (CLI) | payer OTHER, SELFPAY ==
[2025-01-19 13:05] LABS: Hematocrit 32.3 % (36-46); Hemoglobin 11.2 g/dL (12.0-16.0)
[2025-01-19 13:23] LABS: Blood Urea Nitrogen 6 mg/dL (7-17); Calcium 9.1 mg/dL (8.4-10.2); Carbon Dioxide 21 mmol/L (22-32); Chloride 104 mmol/L (98-107); Estimated Glomerular Filt Rate > 60 mL/min (>60); GTT (PREG) 1 Hour PP 50gm Dose 154 mg/dL (76-139); Glucose 154 mg/dL (70-99); HEMOLYSIS < 15 (0-50); Potassium 3.8 mmol/L (3.4-5.1); Sodium 132 mmol/L (137-145)
== END ==
PROVIDERS: Referring Provider Student in an Organized Health Care Education/Training Program; Visit Provider Student in an Organized Health Care Education/Training Program
DX: Z13.1 Encounter for screening for diabetes mellitus (principal); Z13.0 Encounter for screening for diseases of the blood and blood-forming organs and certain disorders involving the immune mechanism; E87.1 Hypo-osmolality and hyponatremia
CPT/HCPCS: 36415; 80048; 82950; 85014; 85018

== ENCOUNTER → 2025-01-24 15:18 | Outpatient (CLI) | payer OTHER, SELFPAY | PROVIDERS: Referring Provider Student in an Organized Health Care Education/Training Program; Visit Provider Student in an Organized Health Care Education/Training Program | DX: E87.1 Hypo-osmolality and hyponatremia (principal) | CPT/HCPCS: 83935; 84300 ==

== ENCOUNTER → 2025-01-28 10:40 | Outpatient (CLI) | payer OTHER, SELFPAY ==
[2025-01-28 12:10] LABS: TSH w/ Reflex to FT4 3.04 uIU/mL (0.47-4.68)
== END ==
PROVIDERS: Referring Provider Student in an Organized Health Care Education/Training Program; Visit Provider Student in an Organized Health Care Education/Training Program
DX: O09.522 Supervision of elderly multigravida, second trimester (principal); E87.1 Hypo-osmolality and hyponatremia
CPT/HCPCS: 36415; 82533; 84443

== ENCOUNTER → 2025-02-13 11:10 | Outpatient (CLI) | payer OTHER, SELFPAY ==
--- NOTE | 2025-02-13 11:12 | DI.US.S_ITS ---
PROCEDURE: US OB LIMITED INDICATIONS: re-evaluate growth OUTSIDE/PRIOR DATING DATA: Last menstrual period (LMP): 07/08/2024 LMP-based estimated date of delivery (BECKY): 04/14/2025 First dating scan (date and location): 12/06/2024 Estimated date of delivery (BECKY) from first dating scan: 04/14/2025 The calculations are made using the BECKY of 04/14/2025. TECHNIQUE: Real-time scanning was performed of the fetus, with image documentation and biometric measurements. Endovaginal scanning: Not performed. COMPARISON: [facility], OB >= 14 WEEKS FETUS, 12/06/2024, 12:58. FINDINGS: General: A single living intrauterine gestation is present. Presentation: Transverse Placenta: Placental position is posterior, without previa. Amniotic fluid index: 13.9 cm, normal range is 5-24 cm. Single deepest vertical pocket is 7.1 cm. heart rate: 147 beats per minute. Maternal cervical canal: 4.0 cm long. Normal lower limit is 2.5 cm. biometrics: Biparietal diameter: 8.0 cm, 32 weeks 0 days Head circumference: 29.4 cm, 32 weeks 3 days Abdominal circumference: 29.7 cm, 33 weeks 4 days Femur length: 6.3 cm, 32 weeks 4 days Clinically estimated gestational age: 31 weeks 3 days Composite gestational age from present scan: 32 weeks 5 days Estimated weight and percentile: 2109 g, 88th percentile IMPRESSION: 1. Single live intrauterine at 31 weeks 3 days clinical gestational age. 2. Estimated weight is at the 88th percentile for gestational age and abdominal circumference is at the 95th percentile. 3. Head circumference is within normal limits on the current exam, at the 40th percentile. Approved by: Bill Vanegas M.D. on 02/13/2025 at 13:57
== END ==
PROVIDERS: Referring Provider Student in an Organized Health Care Education/Training Program; Visit Provider Student in an Organized Health Care Education/Training Program
DX: O09.523 Supervision of elderly multigravida, third trimester (principal); Z3A.32 32 weeks gestation of pregnancy
CPT/HCPCS: 76815

== ENCOUNTER → 2025-03-20 09:43 | Outpatient (CLI) | payer OTHER, SELFPAY ==
[2025-03-21 12:07] LABS: Strep Grp B PCR NEG for Grp B Strep
== END ==
PROVIDERS: Visit Provider Student in an Organized Health Care Education/Training Program
DX: Z36.85 Encounter for antenatal screening for Streptococcus B (principal)
CPT/HCPCS: 87653

== ENCOUNTER 2025-03-20 10:08 | Observation (INO) | payer OTHER, SELFPAY ==
[2025-03-20 10:47] LABS: Add Manual Diff / Slide Review NO; Hematocrit 29.2 % (36-46); Hemoglobin 10.1 g/dL (12.0-16.0); Lymphocytes Absolute Auto 1600 /uL (1100-4500); Mean Corpuscular HGB Conc 34.5 % (30-36); Mean Corpuscular Hemoglobin 27.8 PG (26-34); Mean Corpuscular Volume 80.7 fL (80-100); Platelet Count 292 X10^3/uL (150-400)
[2025-03-20 10:56] LABS: Alanine Aminotransferase 18 IU/L (<35); Albumin 3.5 g/dL (3.5-5.0); Albumin Globulin Ratio 1.0 (1.0-2.8); Alkaline Phosphatase 168 U/L (38-126); Blood Urea Nitrogen 9 mg/dL (7-17); Calcium 9.0 mg/dL (8.4-10.2); Carbon Dioxide 19 mmol/L (22-32); Chloride 107 mmol/L (98-107); Estimated Glomerular Filt Rate > 60 mL/min (>60); Globulin 3.4 g/dL (1.7-4.1); Glucose 83 mg/dL (70-99); HEMOLYSIS < 15 (0-50); Potassium 3.9 mmol/L (3.4-5.1); Sodium 134 mmol/L (137-145); Total Protein 6.9 g/dL (6.3-8.2); Uric Acid 2.8 mg/dL (2.5-6.2)
[2025-03-20 12:13] LABS: Protein (Total) Urine Random 17 mg/dL (0-12); Protein Creatinine Ratio Urine 0.18 GRAM/24H
--- NOTE | 2025-03-20 12:22 | P.TNLD_ITS ---
Visit Information Visit Information Date of evaluation: 03/20/25 Primary OB Provider: Piedad Moy Reason for Evaluation: Yes non-stress test non-stress test reason: hypertension/pre-eclampsia Vital Signs Vital Signs: BPs [id number] [facility] Medical History (Updated 03/20/25 @ 10:09 by Piedad Moy DO) Headache Chicken pox Painful menstrual periods (~2001) Migraine without aura Circulatory disorder Endometriosis (~2010) Anxiety and depression Chronic constipation Surgical History (Updated 10/08/24 @ 19:42 by Genet Choudhary) Anesthesia S/P skin biopsy [place] teeth extracted History of abdominal surgery Family History (Updated 10/08/24 @ 19:43 by Genet Choudhary) Father Migraine Heart disease S/P CABG x 3 Myocardial infarction Stroke Depression Mental health problem Grandfather Heart disease Depression Hypertension Hyperlipidemia Grandmother Alzheimer's dementia Grandfather Lung cancer Smoker Sister Depression Mental health problem Social History marital status: number of children: 1 household members: spouse, family (sister) and children lives independently: Yes caregiver/support person: No housing: house pets and animals: Yes (dogs) education level: college (some college) occupational status: employed (active duty IT) current occupational exposures/hazards: No special margaret needs: No travel history: recent (domestic only) seatbelt use: always helmet use: Yes water heater temp set < 120 deg: Yes working smoke detector in home: Yes fire extinguisher in home: Yes carbon monox detector in home: Yes firearms in home: Yes firearms unloaded and locked: Yes do you feel safe at home: Yes Tobacco: How many years used: 2 second hand exposure: Yes ( and sister, but not around pt) alcohol intake: former (occasional 1-2 glasses wine when not ) substance use type: does not use during the past year weight has: other (wide fluctuations, reports she can be anywhere from size 0-20 clothes) well-balanced diet: daily or most days daily servings fruits/ve or more times/day caffeine: Yes (aware of 200mg limit, recently drastically decreased) Type(s) of exercise: walking Objective Labs 03/20/25 10:33 03/20/25 10:33 Labs: Laboratory Results - last 24 hr 03/20/25 03/20/25 10:33 11:10 WBC 8.5 RBC 3.62 L Hgb 10.1 L Hct 29.2 L MCV 80.7 MCH 27.8 MCHC 34.5 RDW 14.1 Plt Count 292 Neut % (Auto) 70.9 Lymph % (Auto) 19.3 L [place] % (Auto) 8.5 Eos % (Auto) 0.9 L Baso % (Auto) 0.4 Neut # (Auto) 6000 Lymph # (Auto) 1600 [place] # (Auto) 700 Eos # (Auto) 100 Baso # (Auto) 0 Sodium 134 L Potassium 3.9 Chloride 107 Carbon Dioxide 19 L BUN 9 Creatinine 0.48 L Estimated GFR > 60 BUN/Creatinine Ratio 18.8 Glucose 83 Uric Acid 2.8 Calcium 9.0 Total Bilirubin 0.3 AST 24 ALT 18 Alkaline Phosphatase 168 H Total Protein 6.9 Albumin 3.5 Globulin 3.4 Albumin/Globulin Ratio 1.0 U Random Total Protein 17 H Urine Creatinine 93.32 Protein/Creatinin Ratio 0.18 Evaluation Evaluation Baseline heart rate: 130 Variability: Moderate (6-25) monitor accelerations: Present Monitor Decelerations: Absent Category of Tracing: Reactive Diagnosis, Plan/Disposition Final Diagnosis (1) Elevated blood pressure reading in office without diagnosis of hypertension: Status: Acute Plan/Disposition Plan: 35-year-old at 36+ 3 weeks referred to the center for evaluation after mild range blood pressure in clinic. She remains asymptomatic, though she continued to have mild range blood pressures in the center. Preeclampsia lab work was unremarkable. At this time, she does not meet criteria for gestational hypertension, as she does not have 2 mild range blood pressures more than 4 hours apart. Advised the patient come in for repeat evaluation in 2 days on Thursday, for repeat NST in serial blood pressures. We discussed that if she has mild range blood pressures again on Thursday, then induction will be recommended at 37 weeks. -reviewed preeclampsia symptoms, and advised to come in immediately if she experiences any of these -plan for follow-up on Thursday this week for repeat NST and serial blood pressures OB Disposition: home
== END 2025-03-20 12:15 | disposition home or self-care (01) ==
PROVIDERS: Admitting Provider Student in an Organized Health Care Education/Training Program; Referring Provider Student in an Organized Health Care Education/Training Program; Visit Provider Student in an Organized Health Care Education/Training Program
DX: O26.893 Other specified pregnancy related conditions, third trimester (principal); R03.0 Elevated blood-pressure reading, without diagnosis of hypertension; Z3A.36 36 weeks gestation of pregnancy
CPT/HCPCS: 36415; 59025; 59050; 80053; 84550; 85025; 87653; G0378; G0379

== ENCOUNTER 2025-03-22 10:43 | Observation (INO) | payer OTHER, SELFPAY ==
[2025-03-22] MEDS: ACETAMINOPHEN 325 MG TABLET 975 MG PO (11:41)
[2025-03-22 11:45] LABS: Add Manual Diff / Slide Review NO; Hematocrit 29.0 % (36-46); Hemoglobin 9.9 g/dL (12.0-16.0); Lymphocytes Absolute Auto 1500 /uL (1100-4500); Mean Corpuscular HGB Conc 34.2 % (30-36); Mean Corpuscular Hemoglobin 27.8 PG (26-34); Mean Corpuscular Volume 81.2 fL (80-100); Platelet Count 282 X10^3/uL (150-400)
[2025-03-22 11:56] LABS: Alanine Aminotransferase 15 IU/L (<35); Albumin 3.6 g/dL (3.5-5.0); Albumin Globulin Ratio 1.1 (1.0-2.8); Alkaline Phosphatase 172 U/L (38-126); Blood Urea Nitrogen 6 mg/dL (7-17); Calcium 9.2 mg/dL (8.4-10.2); Carbon Dioxide 20 mmol/L (22-32); Chloride 106 mmol/L (98-107); Estimated Glomerular Filt Rate > 60 mL/min (>60); Globulin 3.2 g/dL (1.7-4.1); Glucose 86 mg/dL (70-99); HEMOLYSIS < 15 (0-50); Potassium 3.9 mmol/L (3.4-5.1); Sodium 134 mmol/L (137-145); Total Protein 6.8 g/dL (6.3-8.2); Uric Acid 2.8 mg/dL (2.5-6.2)
[2025-03-22 12:30] LABS: Protein (Total) Urine Random 15 mg/dL (0-12); Protein Creatinine Ratio Urine 0.44 GRAM/24H
[2025-03-23 20:24] VITALS: BP 138/82
== END 2025-03-22 14:05 | disposition home or self-care (01) ==
PROVIDERS: Obstetrics & Gynecology; Admitting Provider Student in an Organized Health Care Education/Training Program; Referring Provider Student in an Organized Health Care Education/Training Program; Visit Provider Student in an Organized Health Care Education/Training Program
DX: O13.3 Gestational [pregnancy-induced] hypertension without significant proteinuria, third trimester (principal); O09.523 Supervision of elderly multigravida, third trimester; Z3A.36 36 weeks gestation of pregnancy
CPT/HCPCS: 36415; 59025; 59050; 76815; 80053; 84550; 85025; G0378; G0379

== ENCOUNTER 2025-03-23 19:53 | Inpatient (IN) | payer OTHER, SELFPAY ==
[2025-03-23 20:20] VITALS: BP 138/82; PULSE 83; RESP 18; TEMP 35.7; O2SAT 98
--- NOTE | 2025-03-23 20:44 | PM.OBHP.IH.1 ---
OB HPI Date/Time Date of admission: 03/23/25 Date Patient Seen: 03/23/25 Time Patient Seen: 20:45 History of Present Condition Chief complaint: induction BECKY Calculator Estimated Delivery Date Method Current WG Current Estimate 04/14/25 LMP (Certain) 36w 6d Other Estimates 04/15/25 Ultrasound #1 36w 5d Estimated Gestational Age (weeks): 36w6d : 3 Para: 1 Narrative: Patient is a 35yo @ 36w6d presents to L&D for scheduled induction of labor for preeclampsia without severe features. She reports mild lower back pain. no other complaints. denies ctxs/LOF/VB and reports goodf etal movement. denies headache, scotomas, RUQ pain. Patient diagnosed with Preeclampsia on 03/21 due to elevated blood pressure >4 hours apart and P/c ratio- 0.4. Paitent has not had any severe range BPs or severe features. She presents for induction of labor with cervical ripening with planned delivery at 37wks. care: good care Dating criteria OB: LMP confirmed by 1st trimester US Ultrasounds: normal 1st trimester US and normal mid trimester US Obstetrical complications: preeclampsia Indications Indication for induction OB: gestational HTN/pre-eclampsia Preadmission Labs Last OB Lab Results: Blood Type A Positive 09/29/24, 15:35 Antibody Screen Negative 09/29/24, 15:35 Hct, (36-46) 29.0 % L 03/22/25, 11:35 Hgb, (12.0-16.0) 9.9 g/dL L 03/22/25, 11:35 Hep Bs Antigen, (NEGATIVE) Negative s/c 09/29/24, 15:35 Hepatitis C Antibody, (NEGATIVE) Negative s/c 09/29/24, 15:35 Rubella Antibody, (>15) 7.1 IU/mL L 09/29/24, 15:35 VZV IgG Antibody, (Non Reactive) Reactive 09/29/24, 15:35 Glucose 1 Hr 50 gm, (76-139) 154 mg/dL H 01/19/25, 11:30 Group B Strep (PCR) Neg for grp b strep 03/20/25, 09:30 Glucose Tolerance Testin hr -: Chlamydia screen: negative, Gonorrhea screen: negative and Urine: negative External Labs -: Urine: negative Prior (ies) Past Pregnancies Del. Date GA/Weeks Labor Lgth Wt Sex Route Outcome Anesthesia Place Delv Breastfeed Preg Comp Name 10/19/12 40 13 7 lb 13 oz Male vaginal live - full term epidural [place], [place] attempted Oliverio Barahona 11/24/21 Delivery Date: 11/24/21 Last Updated by: Valarie Wade RN passed spontaneously, no complications Hx # Term Pregnancies: 1 Number of Living Children: 1 Spontaneous abortions: 1 REPLACED BY [facility] Medical History (Updated 03/23/25 @ 20:47 by Mica Givens DO) Headache Chicken pox Painful menstrual periods (~2001) Migraine without aura Circulatory disorder Endometriosis (~2010) Anxiety and depression Chronic constipation Surgical History (Updated 10/08/24 @ 19:42 by Genet Choudhary) Anesthesia S/P skin biopsy [place] teeth extracted History of abdominal surgery Family History (Updated 10/08/24 @ 19:43 by Genet Choudhary) Father Migraine Heart disease S/P CABG x 3 Myocardial infarction Stroke Depression Mental health problem Grandfather Heart disease Depression Hypertension Hyperlipidemia Grandmother Alzheimer's dementia Grandfather Lung cancer Smoker Sister Depression Mental health problem Social History marital status: number of children: 1 household members: spouse, family (sister) and children lives independently: Yes caregiver/support person: No housing: house pets and animals: Yes (dogs) education level: college (some college) occupational status: employed (active duty IT) current occupational exposures/hazards: No special margaret needs: No travel history: recent (domestic only) seatbelt use: always helmet use: Yes water heater temp set < 120 deg: Yes working smoke detector in home: Yes fire extinguisher in home: Yes carbon monox detector in home: Yes firearms in home: Yes firearms unloaded and locked: Yes do you feel safe at home: Yes Tobacco: How many years used: 2 second hand exposure: Yes ( and sister, but not around pt) alcohol intake: former (occasional 1-2 glasses wine when not ) substance use type: does not use during the past year weight has: other (wide fluctuations, reports she can be anywhere from size 0-20 clothes) well-balanced diet: daily or most days daily servings fruits/ve or more times/day caffeine: Yes (aware of 200mg limit, recently drastically decreased) Type(s) of exercise: walking Meds Home Medications and Allergies Home Medications ?Medication ?Instructions ?Recorded ?Confirmed ?Type vitamins with calcium 1 tab PO DAILY 09/21/24 01/24/25 History no.72-iron 27 mg-folic acid 1 mg tablet (M- Plus) doxylamine succinate 25 mg tablet 12.5 mg (1/2 x 25 mg) PO BEDTIME 09/29/24 01/24/25 Rx (Unisom (doxylamine)) #30 tabs ondansetron 4 mg disintegrating 4 mg PO Q6H PRN nausea and 09/29/24 01/24/25 Rx tablet vomiting #20 tabs pyridoxine (vitamin B6) 25 mg 25 mg PO TID #90 tabs 09/29/24 01/24/25 Rx tablet blood sugar diagnostic (Blood #100 ea 01/20/25 01/24/25 Rx Glucose Test strips) blood-glucose meter (Blood Glucose #1 ea 01/20/25 01/24/25 Rx Monitoring kit) lancets #100 ea 01/20/25 01/24/25 Rx ferrous fumarate 324 mg (106 mg 324 mg PO DAILY #90 tabs 01/24/25 01/24/25 Rx iron) tablet omeprazole 20 mg capsule,delayed 20 mg PO DAILY #60 caps 02/14/25 02/14/25 Rx release Allergies Allergy/AdvReac Type Severity Reaction Status Date / Time No Known Drug Allergies Allergy Verified 01/24/25 14:46 Review of Systems Review of Systems ROS: Yes All systems reviewed with the patient and are negative except as otherwise documented Constitutional Constitutional: Reports as per HPI OB Exam Vital signs Blood Pressure: 136/83 Narrative Exam Narrative: Gen- AAO x 3, NAD abdomen- gravid cervical exam on 03/21- //hi, mid position Assessment and Plan Assessment and Plan Assessment and Plan narrative: Cong is a 35yo @ 36w6d presents to L&D for scheduled induction of labor due to preeclampsia without severe features. 1. IOL- admit to L&D - CEFM, IVF, regular diet - cervix unfavorable, talbot score- 2-- start misoprostol 50mcg PO q 4 hours - FHTs category 1 - GBS negative - pain analgesia per request 2. Preeclampsia without severe features - BP normotensive currently - no severe features - will continue to monitor, antihypertenisve protocol for severe range BPs and will start Mag if indicated - PIH labs wnl, p/c ratio- 0.4 3. Rubella nonimmune - MMR 4. elevated 1hr, normal 3hr GTT dispo- start misoprostol for cervical ripening, anticipate Time-Based Coding :: [TOTAL MINUTES] spent with patient and on the chart (including review of chart, obtaining history, exam, reviewing outside data, placing orders, documenting exam and treatment plan, and counseling patient) on [DATE].
[2025-03-23 21:04] VITALS: BP 136/83
[2025-03-23] MEDS: ACETAMINOPHEN 325 MG TABLET 975 MG PO (21:21)
[2025-03-23] MEDS: PANTOPRAZOLE DR 20 MG TABLET PO (21:35)
[2025-03-23 22:24] LABS: Add Manual Diff / Slide Review NO; Hematocrit 28.3 % (36-46); Hemoglobin 9.6 g/dL (12.0-16.0); Lymphocytes Absolute Auto 1900 /uL (1100-4500); Mean Corpuscular HGB Conc 33.8 % (30-36); Mean Corpuscular Hemoglobin 27.2 PG (26-34); Mean Corpuscular Volume 80.5 fL (80-100); Platelet Count 301 X10^3/uL (150-400)
[2025-03-24] MEDS: CALCIUM CARBONATE 500 MG TAB 1000 MG PO (05:10)
[2025-03-24 06:20] LABS: Alanine Aminotransferase 17 IU/L (<35); Albumin 3.5 g/dL (3.5-5.0); Albumin Globulin Ratio 1.1 (1.0-2.8); Alkaline Phosphatase 181 U/L (38-126); Blood Urea Nitrogen 10 mg/dL (7-17); Calcium 9.3 mg/dL (8.4-10.2); Carbon Dioxide 21 mmol/L (22-32); Chloride 105 mmol/L (98-107); Estimated Glomerular Filt Rate > 60 mL/min (>60); Globulin 3.3 g/dL (1.7-4.1); Glucose 78 mg/dL (70-99); HEMOLYSIS < 15 (0-50); Potassium 3.5 mmol/L (3.4-5.1); Sodium 133 mmol/L (137-145); Total Protein 6.8 g/dL (6.3-8.2)
[2025-03-24] MEDS: fentaNYL 100 MCG/2 ML INJ IV (10:14)
[2025-03-24] MEDS: OXYTOCIN PREMIX 30 UNIT/500 ML PLAST..BAG IV (11:05)
[2025-03-24] MEDS: LACTATED RINGERS 1,000 ML 1000 ML IV (13:03)
[2025-03-24] MEDS: TERBUTALINE 1 MG/ML VIAL 0.25 MG SUBCUT (13:17)
--- NOTE | 2025-03-24 13:17 | PM.OBPNLAB ---
Date/Time Date Patient Seen: 03/24/25 Time Patient Seen: 13:00 Pain Control Pain control: tolerating well Pelvic Exam Dilation (cm): 0.5 Effacement (%): 90 station: -4 Amniotic membrane status: Intact Comments: ballotable parts on exam, BSUS confirmed footling breech presentation Contractions Contractions on admission: regular Monitor mode: External Pitocin rate (mU/min): 4 Contraction frequency (min): 3 Contraction duration (min): 1 Contraction pattern: Regular Contraction phase: Resting Contraction intensity: Moderate Status status: Category l Heart Rate Baseline: 145 Monitor Accelerations: Present Monitor Decelerations: Absent Monitor Variability: Moderate Assessment and Plan Assessment: induction ongoing Comments: Patient confirmed vertex prior to starting induction. Cervix unfavorable on presentation overnight-- started on misoprostol, received 3 doses of 50mcg buccal. Patient becoming more uncomfortable late morning and received IV fentanyl RN checked paitent prior to administering-- head palpated engaaged int he pelvis at that time. Recheck at 1300 by myself- 0.5/90/balottable BSUS brought in to assess position-- position now double footling breech suspect recent flip when patient relaxed from the IV fentanyl. We discussed option including proceeding to section. patient strongly desires to avoid a . We discussed a plan to stop pitocin, give terbutaline to slow contractions. Anesthesia called to place an epidural. Considering position recently flipped and notably has had an unstable lie, we will attempt an external cephalic version. if successful plan to use an abdominal binder to prevent reversion to breech and will restart pitocin. if failed version then will proceed to cesaeran delivery. Plan discussed with patient and partner. all questions answered. Anesthesia coming to room now for epidural placement.
[2025-03-24] MEDS: ePHEDrine 50 MG/ML VIAL 10 MG IV ×2 (13:48→14:00)
--- NOTE | 2025-03-24 13:58 | P.PCN_ITS ---
[facility] <Octavia Barrientos CRNA - Last Filed: 03/24/25 14:12> Pre-procedure Procedure: Continuous Lumbar Epidural for L&D (CSE) Attending OB provider: Mica Givens PMH/GINA narrative: See pre-anesthesia note PSH/Anesthesia history narrative: See pre-anesthesia note Exam narrative: 35yo @ 36w6d here for IOL for pre-eclamsia without severe features. Called to bedside to place CSE due to presentation (breech) and need for analgesia for external version. ASA Class: III Labs: Hct 28.3 % (36-46) L 03/23/25 22:05 Plt Count 301 X10^3/uL (150-400) 03/23/25 22:05 Medications: Current Medications Generic Name Dose Route Start Last Admin Trade Name Freq PRN Reason Stop Dose Admin Calcium Carbonate 1,000 mg 03/24/25 04:50 03/24/25 05:10 Calcium Carbonate 500 Mg Tab PO 1,000 mg Q4HR PRN Administration Dyspepsia Carboprost Tromethamine 250 mcg 03/23/25 20:45 Carboprost 250 Mcg/Ml Ampul IM Q90M PRN Bleeding Diphenhydramine HCl 50 mg 03/23/25 21:00 Diphenhydramine 25 Mg Tablet PO BEDTIME JEFF Fentanyl 100 mcg 03/24/25 10:08 03/24/25 10:14 Fentanyl 100 Mcg/2 Ml Inj IV 100 mcg Q1H PRN Administration Pain, Severe (7-10) Oxytocin/Lactated Ringer's 30 unit in 500 mls @ 200 mls/hr 03/23/25 20:45 Oxytocin Premix IV CONT PRN Bleeding Protocol Tranexamic Acid 1,000 mg/ 100 mls @ 600 mls/hr 03/23/25 20:45 Sodium Chloride IV NOW PRN Bleeding Oxytocin/Lactated Ringer's 30 unit in 500 mls @ 2 mls/hr 03/24/25 10:45 0 03/24/25 11:05 Oxytocin Premix IV 2 milliunit/min TITRATE JEFF 2 mls/hr Protocol Administration 2 MILLIUNIT/MIN Lidocaine HCl 20 ml 03/23/25 20:45 Lidocaine 1% 20 Ml INJ INTRA-OP PRN Post Delivery Methylergonovine Maleate 0.2 mg 03/23/25 20:45 Methylergonovine 0.2 Mg Tablet PO Q6HR PRN Heavy Bleeding Methylergonovine Maleate 0.2 mg 03/23/25 20:45 Methylergonovine 0.2 Mg/Ml Vial IM NOW PRN Bleeding Mineral Oil 30 ml 03/23/25 20:45 Mineral Oil 30 Ml Udc TOP PRN PRN Version Misoprostol 800 mcg 03/23/25 20:45 Misoprostol 200 Mcg Tablet IN NOW PRN Bleeding Misoprostol 400 mcg 03/23/25 20:45 Misoprostol 200 Mcg Tablet SL NOW PRN Bleeding Misoprostol 50 mcg 03/23/25 20:45 03/24/25 07:10 Misoprostol 25 Mcg Tablet PO 50 mcg Q4H PRN Administration cervical ripening Naloxone HCl 0.2 mg 03/23/25 20:45 Naloxone 0.4 Mg/Ml Vial IV Q2MIN PRN Opiate Reversal Oxytocin 10 unit 03/23/25 20:45 Oxytocin 10 Unit/Ml Vial IM NOW PRN Bleeding Pantoprazole Sodium 20 mg 03/23/25 21:30 03/23/25 21:[address] 20 Mg Tablet PO 20 mg QPM JEFF Administration Allergies: Allergies Allergy/AdvReac Type Severity Reaction Status Date / Time No Known Drug Allergies Allergy Verified 03/24/25 05:06 Procedure Insertion date: 03/24/25 Insertion time: 13:30 Prep/Local: betadine x3 (Chloraprep) and 1% lidocaine (5ml) Interspace: L3-L4 Patient position: sitting Needle: 18 gauge Hustead Loss of resistance with: saline RAFFY at (cm): 8 Catheter placed at SKIN (cm): 17 Catheter in SPACE (cm): 9 Sensory level: T11 Insertion: Yes CSF, No Blood, No Paresthesia with insertion, No Paresthesia with injection and No Test dose reaction Initial Medications TEST DOSE time: 13:39 TEST DOSE: 1.5% lidocaine with epinephrine 1:200k (mL): 6 (Test dose x2, 5 mins apart. ) BOLUS DOSE time: 13:37 BOLUS DOSE (mL): 1 (intrathecal) BOLUS DOSE med: 0.25% bupivacaine Infusion INFUSION: 0.125% bupivacaine and with fentanyl 2 mcg/mL Initial rate (mL/hr): 6 Post-procedure Anesthesia date START: 03/24/25 Anesthesia time START: 13:15 <Fatemeh Haywood CRNA - Last Filed: 03/25/25 21:29> Pre-procedure --: 1300 pt with c/o itching unresolved with benadryl and nubain. assessed patient at bedside. pt has a raised diffuse pink macular rash running intermittently around her waist. pt states itching isnt resolving. yanira ordered hydrocrtisone cream. agree with rec. i am also considering allergic dermatitis from linens belly bands etc. 1700 itching resolving with steroid cream. called by OBGYN for pt with decels, possibility of Csection. placed additional PIV via ultrasound guidance. 1830: increased rate to 8 ml with bolus 3 mL patient starting to feel contractions Post-procedure Anesthesia date END: 03/25/25 Anesthesia time END: 21:29 Post-procedure Anesthesia Assessment: Yes CV function: HR/BP stable, Yes Resp function: RR/sat/airway adequate, Yes Post-op hydration adequate, Yes Pain control adequate, Yes Nausea & vomiting absent, Yes Temperature > 36 C, Yes Mental status appropriate and Yes Anesthesia complications
[2025-03-24] MEDS: LACTATED RINGERS 1,000 ML 100 ML IV (14:15)
[2025-03-24] MEDS: ONDANSETRON 4 MG/2 ML INJ IV (15:20)
--- NOTE | 2025-03-24 18:51 | PM.OBPNLAB ---
Date/Time Date Patient Seen: 03/24/25 Time Patient Seen: 17:30 Pain Control Pain control: epidural Comments: resting comfortably with epidural Pelvic Exam Dilation (cm): 1 Effacement (%): 50 station: -4 Amniotic membrane status: Intact Comments: BSUS confirmed vertex presentation Contractions Contractions on admission: irregular Monitor mode: External Contraction frequency (min): 3 Contraction pattern: Regular Contraction phase: Resting Contraction intensity: Mild Status status: Category l Heart Rate Baseline: 145 Monitor Accelerations: Present Monitor Decelerations: Absent Monitor Variability: Minimal Comments: reassuring heart tones Assessment and Plan Assessment: induction ongoing Comments: Cong is a 35yo @ 37wks undergoing induction of labor for preeclampsia without severe features. s/p misoprostol x 4 doses- 50mcg q 4hours over night this am patient latoya well with moderate pain. Pitocin started at 1130am Recieved IV fentanyl for pain relief and while sleeping she felt a large movement of the baby cervical exam performed at 1245 on 03/24 -- noted presentation balottable and concern for breech presentation BSUS confirmed complete breech presentation with head to maternal right Pitocin stopped immediately. patient received an epidural and terbutaline given to slow contractions. discussed primary vs external cephalic version and patient desired to proceed with ECV after review of risks. External cephalic version performed without difficulty- see procedure note patient now with abdominal binder and planning to restart induction. Cervical exam at 1730-- 1/50/-4, vertex confirmed again with BSUS plan to restart misoprostol 50mcg buccal q 4 hours. patient agrees to plan and resting now with epidural in place. Patient considered high risk for hemorrhage at this time considering the prolonged induction and the unstable lie with ECV during labor. starting hgb 9.6 discussed with RN plan for type and cross 2 units, uterotonics at bedside and 2 large IV lines at time of delivery. dispo- anticipate vaginal delivery
[2025-03-24] MEDS: diphenhydrAMINE 50 MG/ML VIAL 25 MG IV (19:22)
[2025-03-24] MEDS: NALBUPHINE 20 MG/ML AMPUL 2.5 MG IV ×2 (20:10→23:04)
[2025-03-25] MEDS: FENT 2MCG/ML BUPIV 0.125% EPI 200 MCG/100 ML PLAST..BAG 6 MCG EPIDURAL ×3 (01:10→20:31)
[2025-03-25] MEDS: ONDANSETRON 4 MG/2 ML INJ IV (08:03)
[2025-03-25] MEDS: OXYTOCIN PREMIX 30 UNIT/500 ML PLAST..BAG IV (11:41)
--- NOTE | 2025-03-25 12:04 | PM.OBPNLAB ---
Date/Time Date Patient Seen: 03/25/25 Time Patient Seen: 11:30 Pain Control Pain control: epidural Comments: Patient resting comfortably Pelvic Exam Dilation (cm): 1 Effacement (%): 90 station: -4 Amniotic membrane status: Intact Contractions Contractions on admission: regular Monitor mode: External Contraction frequency (min): 5 Contraction pattern: Regular Contraction phase: Resting Contraction intensity: Mild Status status: Category l Heart Rate Baseline: 145 Monitor Accelerations: Present Monitor Decelerations: Absent Monitor Variability: Moderate Assessment and Plan Assessment: induction ongoing Comments: Patient is a 35yo @ 37w1d ongoing induction of labor due to Preeclampsia without severe features. Patient received 4 additional doses of misoprostol 50mcg buccal overnight to restart induction of labor after version of fetus back to vertex presentation. Epidural in place- resting comforatbly this morning cervix is 1/90/-4, vertex we discussed starting pitocin but concerned about cervical dilation at 1cm. Discussed the option to place a paulino balloon catheter for mechanical dilation. we discussed using only 20cc of fluid to reduce the risk of disengaging the head and risking reverting to breech. Patient and partner present for discussion and agree to proceed with paulino placement. Paulino placed without difficulty at 1145 on 03/25/25, 20cc in balloon will start pitocin now for induction of labor, titrate per protocol FHTs category 1, reassuring GBS negative discussed high hemorrhage risk with RN team and low starting hgb. plan for 2nd IV with type and cross x 2 units at time of delivery. uterotonics/TRINITY at the bedside. dispo- anticipate
--- NOTE | 2025-03-25 12:11 | P.PCN_ITS ---
Procedures Date/Time Date of procedure: 03/24/25 Time of procedure: 12:45 General Procedure description: Surgeon:?__Mica Givens Software Sales Consultant(s):?_none PreOp Dx:?Breech presentation, prior vaginal delivery PostOp Dx:?Cephalic presentation, successful version Operation:?External Cephalic Version Findings:?Stable HR pre and post procedure Clinical Note:?Ms. Mckinney is a 35 year old who presented to L&D for a scheduled induction of labor at 37wks due to preeclampsia without severe features. Her past medical history is significant for a previous successful vaginal delivery with no complications. Her current has been uncomplicated, however, at her most recent clinical visits she had elevated blood pressures >4 hours apart and P/c ratio that increased to 0.44 so decision made to proceed with delivery at 37wks. Patient was confirmed vertex and induction of labor started on 03/23 at 1900 with misoprostol 50mcg due to unfavorable cervix. She received 3 doses overnigth and in the am was latoya uncomfortably. She received IV fentanyl and whle sleeping and relaxed the fetus flipped to breech presentation. Fetus had been in breech presentatino for most of the antepartum as well. Cervical exam at that time was /balot table so discussed the option to stop the induction and attempt ECV since she was not yet in active labor. Risks of ECV, including abnormal fHR, PROM, abruption, injury to fetus, possible emergency C/S, and failed ECV were discussed with the patient and consent was obtained. Procedure Note:?A bedside ultrasound was performed which confirmed the single intrauterine and a complete footling breech presentation. An epidural was placed for pain control and terbutaline given to slow contractions. There was noted to be adequate fluid (MVP 5.0cm) and a BPP was 8/8. The pelvis was located in the maternal LLQ, spine along the materal left side, and head in the maternal RUQ. Using manual pressure, the fetus was manipulated with gentle pressure from the palms against the buttock and posterior occupit to stimulate a forward roll. In total, three attempts where made. HRs were obtained between each attempt and were reassuring, between 125-135 after each attempt. On the final attempt, the fetus shifted into a vertex lie. Following the procedure, she was noted to have a reassuring and reactive tracing. An abdominal binder was placed and patient rested for 4 hours prior to restarting induction with misoprostol 50mcg bucally q 4hours. Complications: none [employer] Document charge(s): Yes
[2025-03-25] MEDS: HYDROCORTISONE 1% CREAM 28 GM 1 APPLIC TOP (13:11)
[2025-03-25] MEDS: PANTOPRAZOLE DR 20 MG TABLET PO (14:30)
[2025-03-25] MEDS: LACTATED RINGERS 1,000 ML 100 ML IV (17:22)
--- NOTE | 2025-03-25 17:47 | PM.OBPNLAB ---
Date/Time Date Patient Seen: 03/25/25 Time Patient Seen: 17:47 Pain Control Pain control: epidural Pelvic Exam Dilation (cm): 4 Effacement (%): 90 station: -2 Amniotic membrane status: Ruptured Comments: clear fluid Contractions Contractions on admission: regular Monitor mode: External Pitocin rate (mU/min): 0 Contraction frequency (min): 5 Contraction pattern: Regular Contraction phase: Resting Contraction intensity: Strong/Firm Status status: Category ll Heart Rate Baseline: 165 Monitor Accelerations: Absent Monitor Decelerations: Late, Recurrent and Variable Monitor Variability: Minimal Comments: category 2 tracng Assessment and Plan Assessment: induction ongoing Comments: Patient is a 35yo @ 37w1d here ongoing induction of labor for preeclampsia without severe features. Patient currently ongoing induction. s/p misoprostol and was on pitocin up to 11m/umin s/p epidural cervix 4/90/-2 tracing started having recurrent late decelerations and with resussitative measures were unable to resolve the recurrent decelerations. The OR team and anesthesia were called in to be on standby and a second IV line was started (this took some time as she has been a difficult stick and anesthesia required to use an US to establish a working second line). Once the second line was placed, AROM performed at 1723-- noting copious clear fluid tracing did notably improve after arom with improved variability and less pronounced decelerations. Currently patient is in the left lateral position and monitoring FHTs closely. I have spoken to patient about the possibility of section in the case that FHTs return to persistent late decelerations and nonreassuring heart tones. Reviewed risk of including bleeding, pain, infection, and risk of injury to surrounding organs/tissues. Patient verbalizes undersetanding and does agree to proceed to section if recommended. At this time heart tones are overall reassuring and latoya on her own. Will continue expectant mangement for now with the OR team/peds aware and available in the case we need to proceed urgently to delivery.
--- NOTE | 2025-03-25 21:48 | PM.OBPRVD ---
Events: Pre-Eclampsia Labor & Delivery Delivery date: 03/25/25 Delivery Time: 21:20 Intrapartal Events: Hypertonic Dysfunction, Prolonged Latent Phase and Mild Preeclampsia Cervical ripening method: per misoprostal protocol (paulino bulb placed- 20cc) Induction method: per pitocin protocol Delivery augmentation: rupture of membranes Delivery monitor: external FHT Route of delivery: L&D Laceration Description: Perineal - 1st Degree Delivery repair: vicryl Estimated blood loss (mL): 100 Anesthesia Type: Epidural Narrative: Cong is a 35yo @ 37wks presents for IOL due to preeclampsia without severe features. She received misoprostol for cervical ripening and while on pitocin after receiving IV fentanyl, baby flipped to breech presentation. Since she was not yet in active labor we discussed the option for ECV vs section. patient elevated for ECV. Successful ECV performed and restarted induction with misoprostol. after 4 doses of misoprostol she was still 1cm so paulino catheter placed with 20cc balloon. This fell out in 2-3 hours and cervical exam 4cm at that time. She continued pitocin but then started having recurrent late decels so the OR team was called in for standby. Amniotomy performed noting clear fluid. She then progressed to complete dilation and an uncomplicated . meconium noted in fluid around time of delivery so RT present for delivery. Vigorous baby delivered and placed on mother's chest. Cord clamped and cut by FOB after 1 minute delay. Placenta delivered spontaneously and pitocin started for uterotonics. A 1st degree perineal laceration was noted and repaired with 3-0 vicryl in usual fashion. Patient now in room with healthy baby. BPs have been normal to mild range throughout labor. no evidence of severe preeclampsia at this time. Will continue to monitor blood prsesures closely overnight. Plan for aftercare: Routine care
[2025-03-26] MEDS: LANOLIN OINT 7 GM 1 APPLIC TOP ×2 (00:24→01:38)
[2025-03-26] MEDS: DERMOPLAST SPRAY 20% 60 ML 1 SPRAY TOP (00:25)
[2025-03-26] MEDS: IBUPROFEN 600 MG TABLET PO ×4 (00:40→19:18)
[2025-03-26] MEDS: diphenhydrAMINE 50 MG/ML VIAL 25 MG IV (01:38)
[2025-03-26] MEDS: ACETAMINOPHEN 325 MG TABLET 650 MG PO ×3 (05:09→17:58)
[2025-03-27] MEDS: ACETAMINOPHEN 325 MG TABLET 650 MG PO ×2 (00:12→06:30)
[2025-03-27] MEDS: IBUPROFEN 600 MG TABLET PO ×2 (03:20→09:53)
--- NOTE | 2025-03-27 08:02 | P.PNOB_ITS ---
Subjective - OB Subjective Patient comments: no complaints and pain well controlled [place] baby status: doing well and nursing well feeding status: exclusively breast feeding Narrative: Patient is a 35yo s/p on 03/25 after a prolonged induction of labor for preeclampsia. Doing well today. main concern is cramping. bleeding is minimal. baby healthy in room, but with some difficulty as baby is sleepy. FOB supportive in room. reports LE edema persisting but improved from during labor. Date Patient Seen: 03/26/25 Time Patient Seen: 19:45 Exam Vital Signs (past 8 hours): Bps normal to mild range, highest 130s/80s Narrative Exam Narrative: fundus- firm below the umbilicus lochia minimal LE- 1+ edema Const General: cooperative, healthy appearing and comfortable Orientation: alert, awake and oriented x3 Neuro Speech: speech normal Objective Labs 03/23/25 22:05 03/23/25 22:05 Labs: Laboratory Results - last 24 hr 03/23/25 22:05 Crossmatch See Detail Assessment & Plan Plan day: 1 plan OB: routine care Comments: routine care doing well Preeclampsia - no s/s of worsening disease BPs within range --no indication for antihypertensives as this mell discussed close f/u in 3-4 days this week for BP check planning for discharge home tomorrow am. Dr. Givens Time-Based Coding :: [TOTAL MINUTES] spent with patient and on the chart (including review of chart, obtaining history, exam, reviewing outside data, placing orders, documenting exam and treatment plan, and counseling patient) on [DATE].
[2025-03-27] MEDS: MEASLES,MUMPS,RUBELLA VACC/PF 0.5 ML VIAL SUBCUT (12:42)
--- NOTE | 2025-03-27 12:50 | P.DS_ITS ---
Discharge Providers Provider Date of admission: 03/23/25 19:53 Discharge Date: 03/27/25 Primary care physician: Hardy LOVELL Provider Consults: 03/25/25 21:46 Consult to Screen [employer] Routine Comment: Discharge provider: Mica Givens DO Summary Hospital Course Date Patient Seen: 03/27/25 Time Patient Seen: 09:00 Diagnoses: Preeclampsia without severe features. Hospital Course: Patient is a 35yo G3 now P2012 presented to L&D at 37wks for induction of labor due to preeclampsia without severe features. She received misoprostol for cervical ripening and during induction the fetus flipped to breach presentation. the induction was stopped and patient received an epidural and a successful external cephalic version was performed. Induction of labor was continued and patient progressed to an uncomplicated with uncomplicated course. BPs remained within normal range and has a bp cuff at home to monitor BPs. Patient given strict PreE precautions. Peripartum Data Infant Delivery Method: Natural Vaginal Laceration Description: Perineal - 1st Degree Procedures: ECV, epidural, complications: none Status at Discharge Cognitive/behavioral status at discharge: oriented Functional status at discharge: independent ambulation Overall status at discharge: patient is back to baseline Time Spent with Patient Time attestation: Total time spent providing and/or coordinating discharge services: Time spent: Less than 30 minutes Objective Labs 03/23/25 22:05 03/23/25 22:05 Labs: Laboratory Results - last 24 hr 03/23/25 22:05 Crossmatch See Detail Exam Vital Signs (past 8 hours): BPs 110-130s/70-80s Narrative Exam Narrative: gen- AAO x3, NAD fundus firm below yublicius minimal lochia 1+ edema of LE Discharge Plan Discharge Plan Patient Disposition: Home Discharge orders & Medications Prescriptions: New oxycodone 5 mg Tablet 5 mg PO Q4HR PRN (Reason: Pain, Moderate (4-6)) 7 Days Qty: 7 0RF ibuprofen 600 mg Tablet 600 mg PO Q6HR PRN (Reason: Fever/Mild Pain (1-3)) 7 Days Qty: 30 0RF docusate sodium [Dulcolax Stool Softener (dss)] 100 mg capsule 100 mg PO BID PRN (Reason: constipation) Qty: 20 1RF Continued omeprazole 20 mg capsule,delayed release(DR/EC) 20 mg PO DAILY Qty: 60 2RF Rx Instructions: 1 tab daily; may increase to 2 tabs daily if needed for symptom control pyridoxine (vitamin B6) 25 mg tablet 25 mg PO TID Qty: 90 1RF Unisom (doxylamine) 25 mg tablet 12.5 mg PO BEDTIME Qty: 30 0RF ondansetron 4 mg tablet,disintegrating 4 mg PO Q6H PRN (Reason: nausea and vomiting) Qty: 20 1RF M- Plus 27 mg iron- 1 mg tablet 1 tab PO DAILY ferrous fumarate 324 mg (106 mg iron) tablet 324 mg PO DAILY Qty: 90 1RF Follow up/Referrals: Mica Givens DO [Physician, Gynecology] Provider,Hardy LOVELL [Primary Care Provider, Family Practice] Jorge Pinzon MD [Physician, [employer]] - 05/09/25 10:30 am Referral Note: Please Check in at 10:15am on May 09 for your 6 week appointment. Diet/Activity/Treatments Diet: Diet as Tolerated Activity: pelvic rest x 6 weeks Skin/Wound/Dressing Care Report to your healthcare provider any signs of infection, such as:: chills, fever, increased pain, unusual drainage and unusual redness Visit Report/Discharge Packet Instructions: DI for Hemorrhage, DI for Depression, DI for Endometritis Stand Alone Forms: Discharge: Care, Patient Portal/API, Stroke Signs & Symptoms Discharge Data Primary Care Provider: ProviderHardy
== END 2025-03-27 14:30 | disposition home or self-care (01) | DRG 807 ==
PROVIDERS: Admitting Provider Obstetrics & Gynecology; Referring Provider Obstetrics & Gynecology; Visit Provider Obstetrics & Gynecology
DX: O14.04 Mild to moderate pre-eclampsia, complicating childbirth (principal); Z37.0 Single live birth; Z3A.36 36 weeks gestation of pregnancy; O32.8XX0 Maternal care for other malpresentation of fetus, not applicable or unspecified; O76 Abnormality in fetal heart rate and rhythm complicating labor and delivery; O70.0 First degree perineal laceration during delivery
CPT/HCPCS: 36415; 59050; 59200; 59400; 59409; 59412; 76815; 80053; 85025; 86850; 86900; 86901; G0379; J1200; J2300; J2405; J2590; J3010